=== PATIENT | male | born 1985 | race Two or more races ===

== ENCOUNTER 2023-04-16 18:03 | Emergency (ER) | payer MEDICAID, OTHER ==
[~2023-04-16] VITALS: Ht 175.3 cm; Wt 81.0 kg
[2023-04-16 18:51] LABS: Basophils # (auto) 0.1 10 ^3/uL (0-0.2); Basophils % (auto) 0.9 % (0.0-2.0); Eosinophils % (auto) 12.4 % (0.0-7.0); Hematocrit 44.9 % (41.0-53.0); Hemoglobin 15.4 g/dL (13.5-17.5); Lymphocytes # (auto) 2.6 10 ^3/uL (0.4-5.4); Lymphocytes % (auto) 32.3 % (10.0-50.0); Mean Corpuscular Hemoglobin 30.6 pg (28.0-32.0); Mean Corpuscular Hgb Conc. 34.2 g/dL (32.0-36.0); Mean Corpuscular Volume 89.3 fL (80.0-100.0); Monocytes # (auto) 0.4 10 ^3/uL (0-1.3); Monocytes % (auto) 5.4 % (0.0-12.0); Neutrophils # (auto) 3.9 10 ^3/uL (1.6-8.6); Red Blood Cells 5.03 10^6/uL (4.5-5.90); Red Cell Distribution Width 13.4 % (11.8-14.3)
[2023-04-16 19:10] LABS: Calcium 9.7 mg/dL (8.5-10.1); Potassium 3.8 mmol/L (3.5-5.1)
[2023-04-16 19:13] LABS: BUN/Creatinine Ratio 14.7 (10.0-20.0); Bilirubin, Total 0.4 mg/dL (0.2-1.0); Total Protein 7.6 g/dL (6.4-8.2)
[2023-04-16] MEDS ORDERED: DexAMETHasone SOD PHOS 10MG/1ML VIAL INJ IM ONE (21:45)
[2023-04-16] MEDS ORDERED: ACYCLOVIR 400 MG TAB PO ONE (21:45)
[2023-04-16] MEDS ORDERED: POLYSOL7 LEFTEYE (21:48)
[2023-04-16] MEDS ORDERED: ZOFR4T PO (21:48)
[2023-04-16] MEDS ORDERED: HYDR-4902 PO (21:48)
[2023-04-16] MEDS ORDERED: VALA1TAB34 PO (21:48)
[2023-04-16] MEDS ORDERED: PRED20TA2 PO (21:48)
[2023-04-16 22:15] VITALS: BP 139/92; PULSE 61; RESP 16; TEMP 98.7; O2SAT 98
== END 2023-04-16 22:41 | disposition home or self-care (01) ==
LOC: ER 18:03
DX: G51.0 Bell's palsy (principal); R51.9 Headache, unspecified
CPT/HCPCS: 36415; 70450; 80053; 84484; 85025; 93005; 96372; 99285; J1100